=== PATIENT | female | born 1940 | race Caucasian/White ===

== ENCOUNTER 2016-12-31 08:10 | Emergency (ER) | payer MEDICARE ==
[~2016-12-31 08:10] MED LIST: CUBICIN500 MG/10 INJ; FOLIC ACID1 MG PO; HUMULIN 70100 UNIT/1 INJ; LASIX20 MG PO; LOPRESSOR50 MG PO; LORTAB 10-3251 EACH PO; PEPCID20 MG PO; VITAMIN D250000 UNIT PO
== END 2016-12-31 10:30 | disposition home or self-care (01) ==
LOC: ER 08:10
DX: R11.2 Nausea with vomiting, unspecified (principal); E10.22 Type 1 diabetes mellitus with diabetic chronic kidney disease; I12.0 Hypertensive chronic kidney disease with stage 5 chronic kidney disease or end stage renal disease; N18.6 End stage renal disease; E78.5 Hyperlipidemia, unspecified; I25.10 Atherosclerotic heart disease of native coronary artery without angina pectoris; Z99.2 Dependence on renal dialysis; Z79.82 Long term (current) use of aspirin; Z79.899 Other long term (current) drug therapy; Z88.1 Allergy status to other antibiotic agents

== ENCOUNTER 2017-01-06 10:18 | Emergency (ER) | payer MEDICARE | END 2017-01-06 11:51 | disposition home or self-care (01) | LOC: ER 10:18 | DX: E11.22 Type 2 diabetes mellitus with diabetic chronic kidney disease (principal); I12.9 Hypertensive chronic kidney disease with stage 1 through stage 4 chronic kidney disease, or unspecified chronic kidney disease; N18.9 Chronic kidney disease, unspecified; Z99.2 Dependence on renal dialysis; I25.2 Old myocardial infarction; E78.5 Hyperlipidemia, unspecified; Z88.1 Allergy status to other antibiotic agents; Z86.73 Personal history of transient ischemic attack (TIA), and cerebral infarction without residual deficits; Z79.4 Long term (current) use of insulin | CPT/HCPCS: 96374; J2765 ==